=== PATIENT | female | born 1955 | race Caucasian/White ===

== ENCOUNTER 2017-09-15 08:25 | Day surgery (SDC) | payer OTHER ==
--- NOTE | 2017-09-11 13:18 | RAD REPORT ---
EXAM DESCRIPTION: RAD - Chest Pa And Lat (2 Views) - 09/11/2017 1:01 pm CLINICAL HISTORY: Preop chest, pending cardiac catheterization COMPARISON: The TECHNIQUE: PA and lateral views of the chest were obtained. FINDINGS: The lungs are normal volume. Interstitial markings are mildly prominent believed to be bas eric for the patient. Acute interstitial edema or infiltrate doubtful. No acute failure or volume ov erload. Heart size is normal and central vasculature is within normal limits. No pleural effusion or pneumothorax seen. No acute bony finding noted. No aortic abnormality. IMPRESSION: No acute cardiopulmonary process. Mild prominence of the interstitial markings believed to be baseline.
[2017-09-11 13:39] LABS: Absolute Lymphocytes (CBC) 1.2 K/uL (0.7-4.9); Basophils % 0.6 % (0-1.3); Eosinophils % 2.3 % (0-4.4); Hematocrit 44.4 % (36.0-45.0); Lymphocytes % 11.9 % (15.3-44.8); MCH 27.2 pg (27.0-35.0); MCV 83.8 fL (80-100); MPV 9.8 fL (7.6-11.3); Monocytes % 9.2 % (3.3-12.3)
[2017-09-11 13:43] LABS: Protime INR 1.03
[2017-09-11 13:45] LABS: Potassium 3.8 mmol/L (3.5-5.1)
[2017-09-15] MEDS ORDERED: NA CHLORIDE 0.9% 500 ML ONE (09:04)
[2017-09-15] MEDS ORDERED: HEPA 1000U/500MLS 2,000 UNIT/1,000 ML BAG IV ONE (11:21)
[2017-09-15] MEDS ORDERED: HEPARIN 5000 UNIT/ML 1 ML VIAL ONE (11:21)
[2017-09-15] MEDS ORDERED: ATROPINE SULF 1 MG/10 ML SYR IV ONE (11:21)
[2017-09-15] MEDS ORDERED: NA CHLORIDE 0.9% 0 ML ONE (11:21)
[2017-09-15] MEDS ORDERED: NICARDIPINE HCL 25 MG/10 ML IV ONE (11:22)
[2017-09-15] MEDS ORDERED: LIDOCAINE 1% MPF 2 ML AMPULE ONE (11:54)
[2017-09-15] MEDS ORDERED: MIDAZOLAM HCL 2 MG/2 ML INJ ONE ×3 (12:01→12:18)
[2017-09-15] MEDS ORDERED: FENTANYL CITR 100 MCG/2 ML ONE (12:02)
--- NOTE | 2017-09-15 20:54 | OP ---
Surgeon: MD Amy Zhang is the PA in [place]. Procedures: Left heart catheterization, coronary left ventricular angiography. Findings: The patient has normal coronary arteries, normal ejection fraction, normal pressures. A c ompletely normal cardiac cath. Procedure In Detail: The patient gave informed consent, brought to the cardiac veterinary laboratory technician in a fasting state, sedated with Versed, fentanyl, titrated to an adequate level of sedation. Right radial appro ach was used. Tissues around the right radial artery were anesthetized with 1% lidocaine. An artery was entered using a 21-gauge needle. A 0.021 inch diameter guidewire was used to cannulate the [facility] t radial artery and then the modified Seldinger technique was used to place a 6-Nepali Terumo radial artery sheath. Sheath was flushed with a radial cocktail consisting of nicardipine, heparin, and nit roglycerin. We used a TIG catheter by [employer] Glidewire with a short radius J-tip and fluoroscopy to guide the catheter into the ascending aorta. Following this, all the arteries were angiogram'ed usin g the same catheter. At the end of the procedure, the catheter was withdrawn over a J-wire. The she ath was flushed and removed and the arteriotomy was closed using a TR band. No complications from th e procedure. Estimated Blood Loss: 5 cc. Starch Treating Assistant: Aaliyah Lamb. JOMAR/RYAN Voice ID: [id number] Report ID: [id number]
== END 2017-09-15 14:37 | disposition home or self-care (01) ==
LOC: CCL 08:25
PROVIDERS: ATTEND Internal Medicine
PROC: 4A023N7 Measurement of Cardiac Sampling and Pressure, Left Heart, Percutaneous Approach (ICD-10-PCS; principal; 2017-09-15)
PROC: B201YZZ Plain Radiography of Multiple Coronary Arteries using Other Contrast (ICD-10-PCS; 2017-09-15)
PROC: B205YZZ Plain Radiography of Left Heart using Other Contrast (ICD-10-PCS; 2017-09-15)
DX: R07.89 Other chest pain (principal); I35.9 Nonrheumatic aortic valve disorder, unspecified; E78.5 Hyperlipidemia, unspecified; Z88.6 Allergy status to analgesic agent; Z91.048 Other nonmedicinal substance allergy status; Z82.49 Family history of ischemic heart disease and other diseases of the circulatory system
CPT/HCPCS: 36415; 71046; 80048; 85025; 85610; 85730; 93458; C1760; C1893; J0583; J1644; J2001; J2250; J3010